=== PATIENT | male | born 1975 | race American Indian/Alaskan Native ===

== ENCOUNTER 2018-08-10 21:43 | Emergency (ER) | payer SELFPAY ==
--- NOTE | 2018-08-10 22:04 | Emergency Department Report ---
Blank Doc - Documentation Documentation: This is a 43-year-old male that presents with syncopal episode. Patient stated he was in [facility] [place] and "passed out". Denies any other symptoms or complaints. Neuro exam: normal neuro exam. Normal strength. No facial droop. no one sided weakness. This initial assessment diagnostic orders/clinical plan/treatment(s) is/are subject to change based on patient's health status, clinical progression and re- assessment by fellow clinical providers in the ED. Further treatment and workup at subsequent clinical providers discretion. Patient/guardians urged not to elope from ED s their condition may be serious if not clinically assessed and managed. Initial orders include: 1-Patient sent to [facility] for further evaluation and treatment 2- labs 3- UA 4- CT head 5- EKG
--- NOTE | 2018-08-10 22:56 | Cat Scan Report ---
FINAL REPORT EXAM: CT HEAD/BRAIN WO CON HISTORY: Syncope TECHNIQUE: Non-contrast CT brain. Overall image quality is satisfactory. PRIORS: None. FINDINGS: COMMENTS: BONE - Calvarium: Intact Central skull base: Intact Temporal mastoids: No effusion Included paranasal sinuses: Well aerated and without air-fluid levels. CSF SPACES - Ventricles: Normal. Subarachnoid spaces: Normal. BRAIN - No acute intracranial bleed, large vessel territory infarct or mass. IMPRESSION: No significant intracranial abnormality.
[2018-08-10 22:58] LABS: Basophils # (Auto) 0.1 K/mm3 (0.0-0.1); Basophils % (Auto) 0.8 % (0.0-1.8); Eosinophils # (Auto) 0.1 K/mm3 (0.0-0.4); Eosinophils % (Auto) 1.1 % (0.0-4.3); Hematocrit 40.9 % (35.5-45.6); Hemoglobin 13.5 gm/dl (11.8-15.2); Lymphocytes # (Auto) 2.4 K/mm3 (1.2-5.4); Lymphocytes % (Auto) 21.9 % (13.4-35.0); Mean Corpuscular HGB Conc 33 % (32-34); Mean Corpuscular Volume 92 fl (84-94); Monocytes # (Auto) 0.9 K/mm3 (0.0-0.8); Monocytes % (Auto) 8.6 % (0.0-7.3); Platelet Count 309 K/mm3 (140-440); Red Blood Count 4.44 M/mm3 (3.65-5.03)
[2018-08-10 23:06] LABS: Bilirubin,Urine NEG (Negative); Blood,Urine NEG (Negative); Color,Urine Yellow (Yellow); Mucus,Urine FEW /HPF; Protein,Urine <15 mg/dL mg/dL (Negative); Urobilinogen,Urine < 2.0 mg/dL (<2.0)
[2018-08-10 23:24] LABS: Alanine Aminotransferase 12 units/L (7-56); Albumin 3.9 g/dL (3.9-5); BUN/Creatinine Ratio 18; Blood Urea Nitrogen 20 mg/dL (9-20); Calcium 8.6 mg/dL (8.4-10.2); Hemolysis Index 13
[2018-08-10 23:29] VITALS: BP 108/72
--- NOTE | 2018-08-10 23:41 | Emergency Department Report ---
ED General Adult HPI - General Chief complaint: Syncope Stated complaint: SNYCOPE Time Seen by Provider: 08/10/18 22:00 Source: patient Mode of arrival: Ambulatory Limitations: No Limitations - History of Present Illness Initial comments: 43-year-old male with a history of bipolar disorder presents after stating that he had a syncopal episode prior to arrival. Patient's syncopal episode occurred earlier tonight. Patient states he is demanding Xanax Salagen and he started seeing sparkly things in his mouth feel watery. Patient states he tried to st and up and then he states he believes he passed out. Patient states he believed that the less than a minute. Patient denies any seizure activity. Patient denies any urinary or fecal incontinence. Patient states he did feel cold. Patient denies any chest pain shortness of breath at current time. Patient denies any fever. Severity scale (0 -10): 0 - Related Data Allergies Allergy/AdvReac Type Severity Reaction Status Date / Time No Known Allergies Allergy Unverified 08/10/18 21:47 ED Review of Systems ROS: Stated complaint: SNYCOPE Other details as noted in HPI Constitutional: denies: chills, fever Eyes: denies: eye pain, eye discharge, vision change ENT: denies: ear pain, throat pain Respiratory: denies: cough, shortness of breath, wheezing Cardiovascular: denies: chest pain, palpitations Endocrine: no symptoms reported Gastrointestinal: denies: abdominal pain, nausea, diarrhea Genitourinary: denies: urgency, dysuria Musculoskeletal: denies: back pain, joint swelling, arthralgia Skin: denies: rash, lesions Neurological: denies: headache, weakness, paresthesias Psychiatric: other (syncope) Hematological/Lymphatic: denies: easy bleeding, easy bruising ED Past Medical Hx - Past Medical History Hx Psychiatric Treatment: Yes (Bipolar) Additional medical history: Pneumothorax - Surgical History Additional Surgical History: Left Lung surgery - Social History Smoking Status: Current Every Day Smoker Substance Use Type: None ED Physical Exam - General Limitations: No Limitations General appearance: alert, in no apparent distress - Head Head exam: Present: atraumatic, normocephalic - Eye Eye exam: Present: normal appearance - ENT ENT exam: Present: mucous membranes moist - Neck Neck exam: Present: normal inspection - Respiratory Respiratory exam: Present: normal lung sounds bilaterally. Absent: respiratory distress - Cardiovascular Cardiovascular Exam: Present: regular rate, normal rhythm. Absent: systolic murmur, diastolic murmur, rubs, gallop - GI/Abdominal GI/Abdominal exam: Present: soft, normal bowel sounds - Rectal Rectal exam: Present: deferred - Extremities Exam Extremities exam: Present: normal inspection - Back Exam Back exam: Present: normal inspection - Neurological Exam Neurological exam: Present: alert, oriented X3 - Psychiatric Psychiatric exam: Present: normal affect, normal mood - Skin Skin exam: Present: warm, dry, intact, normal color. Absent: rash ED Course Vital Signs 08/10/18 08/10/18 08/10/18 21:53 22:03 23:23 Temperature 97.6 F 97.6 F 98 F Pulse Rate 74 79 88 Pulse Rate [ Lying] Pulse Rate [ Sitting] Pulse Rate [ Standing] Respiratory 18 18 16 Rate Blood Pressure 125/75 125/75 Blood Pressure [Lying] Blood Pressure 101/71 [Right] Blood Pressure [Sitting] Blood Pressure [Standing] O2 Sat by Pulse 100 99 Oximetry 08/10/18 23:28 Temperature Pulse Rate Pulse Rate [ 74 Lying] Pulse Rate [ 84 Sitting] Pulse Rate [ 88 Standing] Respiratory Rate Blood Pressure Blood Pressure 108/72 [Lying] Blood Pressure [Right] Blood Pressure 116/71 [Sitting] Blood Pressure 109/71 [Standing] O2 Sat by Pulse Oximetry ED Medical Decision Making - Lab Data Result diagrams: 08/10/18 22:35 08/10/18 22:35 - EKG Data EKG shows normal: sinus rhythm Rate: normal - Medical Decision Making Patient able to ambulate without difficulty. patient to be discharged to follow up with PCP. - Differential Diagnosis Arrythmia; STEMI; NSTEMI; Dehydration; Electrolyte Abnormality Critical care attestation.: If time is entered above; I have spent that time in minutes in the direct care of this critically ill patient, excluding procedure time. ED Disposition Clinical Impression: Syncope Disposition: DC-01 TO HOME OR SELFCARE Is pt being admited?: No Condition: Stable Instructions: Syncope (ED) Referrals: JASON COREA MD [Staff Physician] - 3-5 Days Time of Disposition: 00:55 Print Language: MAORI
--- NOTE | 2018-08-11 17:53 | XRay Report ---
FINAL REPORT PROCEDURE: Chest. TECHNIQUE: Portable AP view. HISTORY: Chest pain. COMPARISON: No prior studies are available for comparison. FINDINGS: The heart and mediastinum appear normal. The lungs are clear and well expanded. There are some surgic al clips located medially in the left lung apex. There are no pleural effusions. The soft tissues and regional skeleton are unremarkable. IMPRESSION: No evidence of acute disease.
== END 2018-08-11 01:31 | disposition home or self-care (01) ==
LOC: ED 21:43
DX: R55 Syncope and collapse (principal); F31.9 Bipolar disorder, unspecified; F17.200 Nicotine dependence, unspecified, uncomplicated
CPT/HCPCS: 36415; 70450; 71045; 80053; 81001; 84484; 85025; 93005; 93010